=== PATIENT | male | born 1990 | race Caucasian/White ===

== ENCOUNTER 2016-12-07 06:47 | Emergency (ER) | payer OTHER ==
[2016-12-07 07:09] LABS: URINE BILIRUBIN NEGATIVE (NEGATIVE); URINE BLOOD 3+ (NEGATIVE); URINE GLUCOSE (UA) NORMAL (NORMAL); URINE KETONE 1+ (NEGATIVE); URINE LEUKOCYTE ESTERASE TRACE (NEGATIVE); URINE NITRATE NEGATIVE (NEGATIVE); URINE PROTEIN TRACE (NEGATIVE); UROBILINOGEN NORMAL mg/dL (<1.0)
[2016-12-07 07:21] LABS: URINE BACTERIA FEW (NONE SEEN); URINE MUCUS TRACE; URINE RBC TNTC /[HPF] (0-2); URINE WBC 0-5 /[HPF] (0-3)
== END 2016-12-07 08:25 | disposition home or self-care (01) ==
LOC: ER 06:47
PROVIDERS: Internal Medicine
DX: N20.1 Calculus of ureter (principal); R10.9 Unspecified abdominal pain; Z87.442 Personal history of urinary calculi; Z98.890 Other specified postprocedural states
CPT/HCPCS: 74150; 81001; 96374; 96375; 99070; 99284; 99284-25